=== PATIENT | male | born 1960 | race Caucasian/White ===

== ENCOUNTER 2018-03-04 10:19 | Observation (INO) ==
[2018-03-04] MEDS ORDERED: Sodium Chlor 0.9% Inj 500 ML IV.SIG ONE (10:57)
--- NOTE | 2018-03-04 11:05 | ED ---
HPI General Chief Complaint: Chest Pain Stated Complaint: Chest Pain Complaint Time Seen by Provider: 03/04/18 10:34 Source: patient Mode of arrival: ambulatory Limitations: no limitations History of Present Illness HPI narrative: and is followed by his finished goods inspector, Dr. Jj.The patient is a 57-year-old male who presents to the emergency department for chest pain. The patient developed chest pain approximately 30 hours prior to arrival while playing a video game. The chest pain is substernal, nonradiating, described as "squeezing my chest "and constant. The patient denies any exertional component to his pain. He also notes intermittent sharp pains that are worse with inspiration, near the sternum, and only lasts 10 seconds. He denies any new cough, shortness of breath, nausea, vomiting, or diaphoresis. The patient states he has had a stressful month, had surgery performed several months ago by Dr. Patel for an inguinal hernia and then after his surgery his had to have emergent surgery. He denies any significant lower leg swelling and denies any history of DVT or PE. The patient does have a history of coronary artery disease with previous stent placement by Dr. Bledsoe at [facility] in [facility], and is followed by his finished goods inspector Dr. Jj. The patient did take a baby aspirin this morning, he has not tried taking his nitroglycerin sublingual at home. MD complaint: Reports chest pain STEMI Alert: No Onset (ago): day(s) Duration: constant Onset: during rest Pain location: Reports substernal Severity: moderate Severity scale (1-10): 5 Quality: Reports tightness Pain radiation: Reports none Relieving factors: nothing Exacerbating factors: inspiration Treatments prior to arrival chest pain: Reports aspirin Related Data Home Medications Medication Instructions Recorded Confirmed aspirin [Aspirin Low Dose] 81 mg PO DAILY 01/23/18 03/04/18 atorvastatin 20 mg PO HS 01/24/18 03/04/18 hydrocodone-acetaminophen 1 tab PO Q6H PRN 01/24/18 03/04/18 isosorbide mononitrate 60 mg PO DAILY 01/24/18 03/04/18 ranitidine HCl 150 mg PO BID 01/24/18 03/04/18 Allergies Allergy/AdvReac Type Severity Reaction Status Date / Time bee venom protein (honey bee) Allergy Swelling Verified 03/04/18 10:28 [Bee sting] Review of Systems ROS: all other systems reviewed are negative [facility] Social History Social History Substance History: No History of Abuse Second Hand Smoke Exposure: Yes Smoking Status: Never smoker How Often Do You Have a Drink Containing Alcohol: Monthly or less Recent Travel in [facility] within the Last 8 Weeks: No Recent Out of Country Travel within the Last 8 Weeks: No Immunization History Tetanus Immunization: Unsure Exam Narrative Exam Narrative: GENERAL: Awake, alert, very pleasant 57-year-old male who appears his stated age and is in no acute respiratory distress. SKIN: Focused skin assessment warm/dry. HEAD: Atraumatic. Normocephalic. EYES: No injection or drainage. ENT: No nasal bleeding or discharge. Mucous membranes pink and moist. NECK: Trachea midline. No JVD. CARDIOVASCULAR: Regular rate and rhythm. No murmur appreciated. RESPIRATORY: No accessory muscle use. Clear to auscultation. Breath sounds equal bilaterally. GASTROINTESTINAL: Abdomen soft, non-tender, nondistended. Small umbilical hernia. MUSCULOSKELETAL: No obvious deformities. No clubbing. No cyanosis. No edema. NEUROLOGICAL: Awake and alert. No obvious cranial nerve deficits. Motor grossly within normal limits. Normal speech. PSYCHIATRIC: Appropriate mood and affect; insight and judgment normal. Course Initial Documented Vital Signs Temperature 98.0 F 03/04/18 10:24 Pulse Rate 70 03/04/18 10:24 Respiratory Rate 14 03/04/18 10:24 Blood Pressure 102/59 L 03/04/18 10:24 Pulse Oximetry 96 03/04/18 10:24 Last Documented Vital Signs Temperature 98.0 F 03/04/18 10:24 Pulse Rate 56 L 03/04/18 12:41 Respiratory Rate 18 03/04/18 12:41 Blood Pressure 100/56 L 03/04/18 12:41 Pulse Oximetry 97 03/04/18 12:41 Medical Decision Making [facility] Narrative Medical decision making narrative: IV was established, labs are drawn and sent, and the patient was placed on cardiac telemetry monitoring and continuous pulse oximetry monitoring. EKG was ordered and interpreted. Chest x-ray was obtained. The patient was administered aspirin and Nitropaste. The patient's initial troponin and CPK were unremarkable. Chest x-ray was unremarkable. However, lipase level was greater than 1200. The patient had 2 beers on Saturday while pressure washing the driveway, however, he does not drink alcohol on a regular basis. The patient denies any previous history of pancreatitis or chronic alcohol abuse, therefore, ultrasound of the gallbladder was obtained to evaluate for possible biliary stone. Ultrasound is negative. Review the patient's medications revealed no obvious medications known to cause pancreatitis. The patient may have hypertriglyceridemia versus atypical viral syndrome with acute pancreatitis, however, level is greater than 1000, therefore , patient will be admitted for further workup. The patient has [facility], therefore, the on-call [facility] physician was paged for admission. I discussed the patient with Dr. Gan who agrees with admission. Medical Screen Exam Complete: Yes Emergency Medical Condition: Yes Differential Diagnosis Differential Diagnosis: Differential diagnosis includes STEMI, acute coronary syndrome, GERD, esophageal spasm, costochondritis, pleurisy, pulmonary embolism , pancreatitis, gastritis, peptic ulcer disease. Lab Data Lab results reviewed: Yes I reviewed the patient's lab results. Lab results narrative: Lipase was 1231 Result diagrams: 03/04/18 10:50 03/04/18 10:50 Lab Results 03/04/18 03/04/18 03/04/18 Range/Units 10:50 10:50 10:50 WBC 10.7 (4.0-11.0) th/mm3 RBC 4.81 (4.50-5.90) mil/mm3 Hgb 15.0 (13.0-17.0) gm/dL Hct 44.2 (39.0-51.0) % MCV 92.0 (80.0-100.0) fL MCH 31.3 (27.0-34.0) pg MCHC 34.0 (32.0-36.0) % RDW 14.0 (11.6-17.2) % Plt Count 337 (150-450) th/mm3 MPV 8.1 (7.0-11.0) fL Prelim Diff (Auto) Slide review pending Neut % (Auto) 70.0 (16.0-70.0) % Lymph % (Auto) 21.2 (9.0-44.0) % Greer % (Auto) 7.8 (0.0-8.0) % Eos % (Auto) 0.7 (0.0-4.0) % Baso % (Auto) 0.3 (0.0-2.0) % Neut # (Auto) 7.5 (1.8-7.7) th/mm3 Lymph # (Auto) 2.3 (1.0-4.8) th/mm3 Greer # (Auto) 0.8 (0.0-0.9) th/mm3 Eos # (Auto) 0.1 (0.0-0.4) th/mm3 Baso # (Auto) 0.0 (0.0-0.2) th/mm3 WBC Differential . Diff Scan Auto diff confirmed Differential Comment . Platelet Estimate Normal (Normal) Platelet Morphology Normal (Normal) PT 10.4 (9.8-11.6) sec INR 1.0 Ratio APTT 23.5 (23.4-31.7) sec Sodium 141 (136-145) meq/L Potassium 4.3 (3.5-5.1) meq/L Chloride 109 H (98-107) meq/L Carbon Dioxide 22.7 (21.0-32.0) meq/L Anion Gap 9 (5-15) meq/L BUN 13 (7-18) mg/dL Creatinine 1.01 (0.60-1.30) mg/dL Estimated GFR 76 L (>89) mL/min Random Glucose 109 H (74-106) mg/dL Calcium 8.6 (8.5-10.1) mg/dL Magnesium 2.1 (1.5-2.5) mg/dL Total Bilirubin 0.6 (0.2-1.0) mg/dL AST 47 H (15-37) U/L ALT 44 (12-78) U/L Alkaline Phosphatase 95 (45-117) U/L Total Creatine Kinase 144 (39-308) U/L CK-MB (CK-2) 1.3 (0.5-3.6) ng/mL Troponin I Less than 0.02 L (0.02-0.05) ng/mL B-Natriuretic Peptide (0-100) pg/mL Total Protein 7.8 (6.4-8.2) g/dL Albumin 3.9 (3.4-5.0) g/dL Lipase 1231 H (73-393) U/L 03/04/18 Range/Units 10:50 WBC (4.0-11.0) th/mm3 RBC (4.50-5.90) mil/mm3 Hgb (13.0-17.0) gm/dL Hct (39.0-51.0) % MCV (80.0-100.0) fL MCH (27.0-34.0) pg MCHC (32.0-36.0) % RDW (11.6-17.2) % Plt Count (150-450) th/mm3 MPV (7.0-11.0) fL Prelim Diff (Auto) Neut % (Auto) (16.0-70.0) % Lymph % (Auto) (9.0-44.0) % Greer % (Auto) (0.0-8.0) % Eos % (Auto) (0.0-4.0) % Baso % (Auto) (0.0-2.0) % Neut # (Auto) (1.8-7.7) th/mm3 Lymph # (Auto) (1.0-4.8) th/mm3 Greer # (Auto) (0.0-0.9) th/mm3 Eos # (Auto) (0.0-0.4) th/mm3 Baso # (Auto) (0.0-0.2) th/mm3 WBC Differential Diff Scan Differential Comment Platelet Estimate (Normal) Platelet Morphology (Normal) PT (9.8-11.6) sec INR Ratio APTT (23.4-31.7) sec Sodium (136-145) meq/L Potassium (3.5-5.1) meq/L Chloride (98-107) meq/L Carbon Dioxide (21.0-32.0) meq/L Anion Gap (5-15) meq/L BUN (7-18) mg/dL Creatinine (0.60-1.30) mg/dL Estimated GFR (>89) mL/min Random Glucose (74-106) mg/dL Calcium (8.5-10.1) mg/dL Magnesium (1.5-2.5) mg/dL Total Bilirubin (0.2-1.0) mg/dL AST (15-37) U/L ALT (12-78) U/L Alkaline Phosphatase (45-117) U/L Total Creatine Kinase (39-308) U/L CK-MB (CK-2) (0.5-3.6) ng/mL Troponin I (0.02-0.05) ng/mL B-Natriuretic Peptide 30 (0-100) pg/mL Total Protein (6.4-8.2) g/dL Albumin (3.4-5.0) g/dL Lipase (73-393) U/L Imaging Data Radiologist's impression: Chest X-Ray 03/04/18 10:57 CONCLUSION: No acute cardiopulmonary disease. Gallbladder Ultrasound 03/04/18 11:45 CONCLUSION: 1. Unremarkable study. ECG Data EKG Prior to Arrival: No Attestation: I personally reviewed and interpreted this ECG as follows: Interpretation: EKG reveals normal sinus rhythm with a rate of Q wave in lead II , III, and aVF with inverted T waves in lead III and aVF. No significant changes when compared to EKG from December 17, 2017. Discharge Plan Discharge Disposition Patient Disposition: 30 Still Patient Discharge Condition Condition: Stable Discharge Details Diagnosis: Acute pancreatitis Physicians Team ED Provider: Coy Romero Primary Care Provider: Ben Carreno Attending Provider: Adrian Gan Status ED Status: Admitted Patient
--- NOTE | 2018-03-04 11:12 | XR ---
EXAM DATE: 03/04/2018 11:06 AM EST AGE/SEX: 57 years / Male INDICATIONS: Chest pain. CLINICAL DATA: This is the patient's initial encounter. Patient reports that signs and symptoms have been present for 1 day and indicates a pain score of 5/10. MEDICAL/SURGICAL HISTORY: None. . Heart stent. COMPARISON: No prior exams available for comparison. FINDINGS: The lungs are clear without infiltrate, nodule, or mass. There is no appreciable pleural effusion for technique. Heart and mediastinum are unremarkable. CONCLUSION: No acute cardiopulmonary disease. Electronically signed by: Nohemy Moya MD 03/04/2018 11:11 AM EST
[2018-03-04 11:29] LABS: Baso % (Auto) 0.3 % (0.0-2.0); Eos # (Auto) 0.1 th/mm3 (0.0-0.4); Eos % (Auto) 0.7 % (0.0-4.0); Hematocrit 44.2 % (39.0-51.0); Lymph # (Auto) 2.3 th/mm3 (1.0-4.8); Lymph % (Auto) 21.2 % (9.0-44.0); Mean Corpuscular Hemoglobin 31.3 pg (27.0-34.0); Mean Platelet Volume 8.1 fL (7.0-11.0); Mono # (Auto) 0.8 th/mm3 (0.0-0.9); Mono % (Auto) 7.8 % (0.0-8.0); Neut # (Auto) 7.5 th/mm3 (1.8-7.7); Platelet Count 337 th/mm3 (150-450); Red Blood Count 4.81 mil/mm3 (4.50-5.90); White Blood Count 10.7 th/mm3 (4.0-11.0)
[2018-03-04 11:32] LABS: Activated Partial Thrombo Time 23.5 sec (23.4-31.7); Prothrombin Time 10.4 sec (9.8-11.6)
[2018-03-04 11:38] LABS: Alanine Aminotransferase 44 U/L (12-78); Albumin 3.9 g/dL (3.4-5.0); Anion Gap 9 meq/L (5-15); Aspartate Aminotransferase 47 U/L (15-37); Blood Urea Nitrogen 13 mg/dL (7-18); Calcium 8.6 mg/dL (8.5-10.1); Carbon Dioxide 22.7 meq/L (21.0-32.0); Chloride 109 meq/L (98-107); Glomerular Filtration Rate 76 mL/min (>89); Glucose,Random 109 mg/dL (74-106); Lipase 1231 U/L (73-393); Magnesium 2.1 mg/dL (1.5-2.5); Potassium 4.3 meq/L (3.5-5.1); Sodium 141 meq/L (136-145)
--- NOTE | 2018-03-04 11:38 | ECG ---
Date Performed: 03/04/2018 Time Performed: 10:35:34 PTAGE: 57 years EKG: Sinus rhythm INFERIOR MYOCARDIAL INFARCTION ABNORMAL ECG NO PREVIOUS TRACING DOCTOR: David Honeycutt Interpretating Date/Time 03/04/2018 11:37:11
[2018-03-04 11:41] LABS: Alkaline Phosphatase 95 U/L (45-117); Creatine Kinase 144 U/L (39-308); Total Protein 7.8 g/dL (6.4-8.2)
[2018-03-04 11:54] LABS: Creatine Kinase MB 1.3 ng/mL (0.5-3.6)
[2018-03-04 12:00] LABS: Platelet Estimate Normal (Normal); Platelet Morphology Normal (Normal)
--- NOTE | 2018-03-04 12:15 | US ---
EXAM DATE: 03/04/2018 12:06 PM EST AGE/SEX: 57 years / Male INDICATIONS: Abdominal pain. Evaluate common bile duct. CLINICAL DATA: This is the patient's initial encounter. Patient reports that signs and symptoms have been present for 3 days and indicates a pain score of 3/10. MEDICAL/SURGICAL HISTORY: . Heart disease. . Cardiac stent. Inguinal hernia repair. COMPARISON: No prior exams available for comparison. MEASUREMENTS: Liver:__ 16.5 cm. Common Bile Duct:__ 5mm. FINDINGS: Liver: Normal echotexture without focal lesion or ductal dilatation. Portal Vein: Hepatopedal flow seen in portal vein. Common Duct: No intraluminal mass or stone visualized. Gallbladder: Demonstrates no wall thickening or pericholecystic fluid. No stones visualized. Pancreas: Not well visualized. Right Kidney: Normal echotexture and cortical thickness. No mass or hydronephrosis. Other: None. CONCLUSION: 1. Unremarkable study. Electronically signed by: Nohemy Moya MD 03/04/2018 12:13 PM EST
[2018-03-04] MEDS ORDERED: Acetaminophen 325 MG Tablet PO PRN (12:59)
[2018-03-04] MEDS ORDERED: Temazepam 15 MG Capsule PO PRN (12:59)
[2018-03-04] MEDS ORDERED: Haloperidol Inj 5 MG/ML Ampul IV.PUSH PRN (13:11)
[2018-03-04] MEDS ORDERED: LORazepam 1 MG Tablet PO PRN (13:11)
[2018-03-04] MEDS ORDERED: HYDROmorphone PF Inj 0.5 MG/0.5 ML Syringe IV.PUSH PRN (13:19)
[2018-03-04] MEDS: KCL 20 mEq/NACL 0.45% Inj 1,000 ML IV.CONT SCH (14:09)
--- NOTE | 2018-03-04 16:37 | P.HPIM ---
History of Present Illness Primary Care Physician: Ben Carreno History of Present Illness: Pt is a 57 y/o WM with CAD s/p PTCA, GERD, migraine headaches, hyperlipidemia, and chronic back pain. He presented to the ED at [facility] with complaints of chest pain. The patient developed chest pain approximately 30 hours prior to arrival in the ED while playing a video game. Its described as a constant lower sternal, nonradiating, described as "squeezing my chest." The patient denies any exertional component to his pain. He denies any new cough, shortness of breath, diaphoresis, fevers/chills, nausea, vomiting, or diaphoresis. Denies any The patient recently had inguinal hernia [place] [address] Patel. He denies any significant lower leg swelling and denies any history of DVT or PE. His labs in the ED revealed Lipase of 1231, AST 47, ALT 44, TBili 0.6 and AlkPhos 95. His troponin I was less than 0.02. Gallbladder US was negative. He reports very occasional alcohol use. Last beer was 2 days ago and prior to that it was a few weeks ago. He denies any new medications. No recent travel. Past Medical Hx: CAD s/p PTCA GERD Hyperlipidemia Migraine Rosado Chronic low back pain Hx of nicotine dependence Past Surgical Hx: Inguinal hernia repair BCC removed from lip PTCA with stent placement in 2014 Family Hx: Noncontributory Social Hx: Hx of tobacco use, smoked 1/2-1ppd x 30+years, none for the last 5 years Occasional alcohol use Rare marijuana use Diagnosis (1) Atypical chest pain: (2) Elevated lipase: (3) Hyperlipidemia: (4) GERD (gastroesophageal reflux disease): Inpatient Certification Inpatient Certification: I certify that the inpatient services were ordered in accordance with Medicare regulations governing the order. This includes certification that hospital inpatient services are reasonable and necessary and in the case of services not specified as inpatient-only under 42 CFR 419.22(n), that they are appropriately provided as inpatient services in accordance to with the 2-midnight benchmark under 43 CFR 412.3(e) Estimated Total Length of Stay (Days): 3 Plans for Post Hospital Care: Not yet determined Medications and Allergies Allergies Allergy/AdvReac Type Severity Reaction Status Date / Time bee venom protein (honey bee) Allergy Swelling Verified 03/04/18 10:28 [Bee sting] Home Medications Medication Instructions Recorded Confirmed Type aspirin [Aspirin Low Dose] 81 mg PO DAILY 01/23/18 03/04/18 History atorvastatin 20 mg PO HS 01/24/18 03/04/18 History hydrocodone-acetaminophen 1 tab PO Q6H PRN 01/24/18 03/04/18 History isosorbide mononitrate 60 mg PO DAILY 01/24/18 03/04/18 History ranitidine HCl 150 mg PO BID 01/24/18 03/04/18 History Active Medications: Active Medications Acetaminophen (Tylenol) 650 mg PO Q4H PRN PRN Reason: Temp > 100.4 Hydrocodone Bitart/Acetaminophen (Isola 5/325) 1 tab PO Q4H PRN PRN Reason: pain 1 - 5 Al Hydroxide/Mg Hydroxide (Milk Of Magnesia Liq) 30 ml PO Q12H PRN PRN Reason: Mild Constipation Aspirin (Ecotrin) 81 mg PO DAILY [facility] Last Admin: 03/04/18 14:10 Dose: 81 mg Atorvastatin Calcium (Lipitor) 20 mg PO HS [facility] Flumazenil (Romazecon Inj) 0.2 mg IV.PUSH Q1M PRN PRN Reason: OVERSEDATION Haloperidol Lactate (Haldol Inj) 1 mg IV.PUSH Q15M PRN PRN Reason: for severe agitation Hydromorphone HCl (Dilaudid Pf Inj) 0.5 mg IV.PUSH Q4H PRN PRN Reason: pain 6 -10, Potassium Chloride/Sodium Chloride (Potassium Chlor 20 Meq/Nacl 0.45% Inj) 1, 000 mls @ 84 mls/hr IV.CONT .[id number] [facility] Last Admin: 03/04/18 14:09 Dose: 84 mls/hr Isosorbide Mononitrate (Imdur) 60 mg PO DAILY [facility] Lorazepam (Ativan Inj) 1 mg IV.PUSH Q4H PRN PRN Reason: for CIWA 8-10 Lorazepam (Ativan Inj) 2 mg IV.PUSH Q15M PRN PRN Reason: for CIWA > 20 Lorazepam (Ativan Inj) 2 mg IV.PUSH Q2H PRN PRN Reason: for CIWA 11-14 Lorazepam (Ativan) 1 mg PO Q4H PRN PRN Reason: for CIWA 8-10 Lorazepam (Ativan) 2 mg PO Q2H PRN PRN Reason: for CIWA 11-14 Lorazepam (Ativan Inj) 2 mg IV.PUSH Q1H PRN PRN Reason: for CIWA 15-20 Non-Formulary Medication (Ranitidine Hcl [Ranitidine Hcl]) 150 mg PO BID DEVAN Ondansetron HCl (Zofran Inj) 4 mg IV.PUSH Q6H PRN PRN Reason: NAUSEA OR VOMITING Senna/Docusate Sodium (Lexi-Colace) 1 tab PO BID DEVAN Sodium Chloride (Ns Flush) 2 ml IV.FLUSH UNSCH PRN PRN Reason: FLUSH AFTER USING IV ACCESS Temazepam (Restoril) 15 mg PO HS PRN PRN Reason: INSOMNIA Physical Exam Vital signs: Last Vital Signs Temp 98.0 F 03/04/18 10:24 Pulse 58 L 03/04/18 16:06 Resp 18 03/04/18 16:06 BP 102/57 L 03/04/18 16:06 Pulse Ox 98 03/04/18 16:06 Narrative: GENERAL: NAD, AAOx3 SKIN: Warm and dry. HEAD: Atraumatic. Normocephalic. EYES: Pupils equal and round. No scleral icterus. No injection or drainage. ENT: No nasal bleeding or discharge. Mucous membranes pink and moist. NECK: Trachea midline. No JVD. CARDIOVASCULAR: Regular rate and rhythm. RESPIRATORY: No accessory muscle use. Clear to auscultation. Breath sounds equal bilaterally. GASTROINTESTINAL: Abdomen soft, non-tender, nondistended. Hepatic and splenic margins not palpable. MUSCULOSKELETAL: Extremities without clubbing, cyanosis, or edema. No obvious deformities. NEUROLOGICAL: Awake and alert. No obvious cranial nerve deficits. Motor grossly within normal limits. Five out of 5 muscle strength in the arms and legs. Normal speech. PSYCHIATRIC: Appropriate mood and affect; insight and judgment normal. Results Labs CBC & Chem 7: 03/05/18 04:04 03/05/18 04:04 Imaging Chest X-Ray 03/04/18 10:57 CONCLUSION: No acute cardiopulmonary disease. Gallbladder Ultrasound 03/04/18 11:45 CONCLUSION: 1. Unremarkable study. Caprini VTE Risk Assessment Caprini VTE Risk Assessment: No/Low Risk (score <= 1) Caprini Risk Assessment Model: Point Value = 1 Point Value = 2 Point Value = 3 Point Value = 5 Age 41-60 Minor surgery BMI > 25 kg/m2 Swollen legs Varicose veins or History of unexplained or recurrent spontaneous Oral contraceptives or hormone replacement Sepsis (< 1 month) Serious lung disease, including pneumonia (< 1 month) Abnormal pulmonary function Acute myocardial infarction Congestive heart failure (< 1 month) History of inflammatory bowel disease Medical patient at bed rest Age 61-74 Arthroscopic surgery Major open surgery (> 45 min) Laparoscopic surgery (> 45 min) Malignancy Confined to bed (> 72 hours) Immobilizing plaster cast Central venous access Age >= 75 History of VTE Family history of VTE Factor V Leiden Prothrombin [id number] Lupus anticoagulant Anticardiolipin antibodies Elevated serum homocysteine Heparin-induced thrombocytopenia Other congenital or acquired thrombophilia Stroke (< 1 month) Elective arthroplasty Hip, pelvis, or leg fracture Acute spinal cord injury (< 1 month) Prophylaxis Regimen: Total Risk Factor Score Risk Level Prophylaxis Regimen 0-1 Low Early ambulation 2 Moderate Order ONE of the following: *Sequential Compression Device (SCD) *Heparin 5000 units SQ BID 3-4 Higher Order ONE of the following medications: *Heparin 5000 units SQ TID *Enoxaparin/Lovenox 40 mg SQ daily (WT < 150 kg, CrCl > 30 mL/min) *Enoxaparin/Lovenox 30 mg SQ daily (WT < 150 kg, CrCl > 10-29 mL/min) *Enoxaparin/Lovenox 30 mg SQ BID (WT < 150 kg, CrCl > 30 mL/min) AND/OR *Sequential Compression Device (SCD) 5 or more Highest Order ONE of the following medications: *Heparin 5000 units SQ TID (Preferred with Epidurals) *Enoxaparin/Lovenox 40 mg SQ daily (WT < 150 kg, CrCl > 30 mL/min) *Enoxaparin/Lovenox 30 mg SQ daily (WT < 150 kg, CrCl > 10-29 mL/min) *Enoxaparin/Lovenox 30 mg SQ BID (WT < 150 kg, CrCl > 30 mL/min) AND *Sequential Compression Device (SCD) Assessment and Plan Assessment (1) Atypical chest pain: Code(s): R07.89 - Other chest pain Status: Acute (2) Elevated lipase: Code(s): R74.8 - Abnormal levels of other serum enzymes Status: Acute (3) Hyperlipidemia: Code(s): E78.5 - Hyperlipidemia, unspecified Status: Chronic (4) GERD (gastroesophageal reflux disease): Code(s): K21.9 - Gastro-esophageal reflux disease without esophagitis Status: Chronic Plan Atypical Chest pain Elevated Lipase, ?acute pancreatitis - 57 y/o WM with CAD s/p PTCA, GERD, migraine headaches, hyperlipidemia, and chronic back pain. He presented to the ED at [facility] with complaints of chest pain. The patient developed chest pain approximately 30 hours prior to arrival in the ED while playing a video game. The patient denies any exertional component to his pain. He denies any new cough, shortness of breath, diaphoresis, fevers/ chills, nausea, vomiting, or diaphoresis. The patient recently had inguinal hernia repair in 12/[address] Patel. He reports very occasional alcohol use. Last beer was 2 days ago and prior to that it was a few weeks ago. He denies any new medications. No recent travel. - His labs in the ED revealed Lipase of 1231, AST 47, ALT 44, TBili 0.6 and AlkPhos 95. - His troponin I was less than 0.02. - Gallbladder US was negative. - Check Serial CE - Check Lipase and FLP in AM - IVF - Pain control as BP allows - Pt insistent on at least a liquid diet this evening. Dicussed with him that with repeat labs in AM should he have any elevation in his Lipase or any increased pain that he is to be strict NPO - Supportive care - Further recommendations as the case develops Hx of CAD/CA s/p PTCA with stent in 2014 - Pt is on Imdur 60mg po daily but BP is quite low - Decrease Imdur down to 30mg daily but will need to watch the BP closely Hyperlipidemia - Cont. statin GERD - PPI Attending Attestation The exam, history, and the medical decision-making described in the above note were completed with the assistance of the mid-level provider. I reviewed and agree with the findings presented. I attest that I had a [id number] encounter with the patient on the same day, and personally performed and documented my assessment and findings in the medical record. Patient examined. Assessment and plan formulated with Humaira Anne PA-C. I agree with the above.
[2018-03-04 18:49] LABS: Amphetamine Screen,Urine Neg (Neg); Barbiturate Screen,Urine Neg (Neg); Cannabinoid Screen,Urine Pos (Neg); Cocaine Screen,Urine Neg (Neg)
[2018-03-04 18:53] LABS: Opiate Screen,Urine Neg (Neg)
[2018-03-04] MEDS: Senna/Docusate Sodium 8.6/50 MG Tablet PO SCH (20:56)
[2018-03-04 22:04] LABS: Creatine Kinase 93 U/L (39-308)
[2018-03-05] MEDS: KCL 20 mEq/NACL 0.45% Inj 1,000 ML IV.CONT SCH ×2 (01:27→13:24)
[2018-03-05 05:55] LABS: Baso % (Auto) 0.5 % (0.0-2.0); Eos # (Auto) 0.1 th/mm3 (0.0-0.4); Eos % (Auto) 1.7 % (0.0-4.0); Hematocrit 41.1 % (39.0-51.0); Hemoglobin 13.8 gm/dL (13.0-17.0); Lymph # (Auto) 2.4 th/mm3 (1.0-4.8); Lymph % (Auto) 32.4 % (9.0-44.0); Mean Corpuscular HGB Conc 33.5 % (32.0-36.0); Mean Corpuscular Hemoglobin 30.4 pg (27.0-34.0); Mean Corpuscular Volume 90.8 fL (80.0-100.0); Mean Platelet Volume 7.7 fL (7.0-11.0); Mono # (Auto) 0.6 th/mm3 (0.0-0.9); Mono % (Auto) 8.1 % (0.0-8.0); Neut # (Auto) 4.3 th/mm3 (1.8-7.7); Neut % (Auto) 57.3 % (16.0-70.0); Platelet Count 271 th/mm3 (150-450); Red Blood Count 4.52 mil/mm3 (4.50-5.90); Red Cell Distribution Width 13.3 % (11.6-17.2); White Blood Count 7.5 th/mm3 (4.0-11.0)
[2018-03-05 06:25] LABS: Alanine Aminotransferase 39 U/L (12-78); Albumin 3.5 g/dL (3.4-5.0); Anion Gap 7 meq/L (5-15); Aspartate Aminotransferase 39 U/L (15-37); Blood Urea Nitrogen 12 mg/dL (7-18); Calcium 8.3 mg/dL (8.5-10.1); Carbon Dioxide 25.9 meq/L (21.0-32.0); Chloride 110 meq/L (98-107); Cholesterol 102 mg/dL (120-200); Glomerular Filtration Rate Greater Than 89 mL/min (>89); Glucose,Random 76 mg/dL (74-106); Lipase 1278 U/L (73-393); Potassium 3.8 meq/L (3.5-5.1); Sodium 143 meq/L (136-145)
[2018-03-05] MEDS: Isosorbide Mononitrate 30 MG ER 24HR Tablet (Imdur) PO SCH (06:29)
[2018-03-05 06:34] LABS: Alkaline Phosphatase 87 U/L (45-117); Chol/HDL Ratio 3.05 Ratio; HDL Cholesterol 33.4 mg/dL (40.0-60.0); LDL Cholesterol,Calculated 43 mg/dL (0-99); Total Protein 7.2 g/dL (6.4-8.2); Triglycerides 127 mg/dL (42-150)
[2018-03-05 06:37] LABS: Creatine Kinase 95 U/L (39-308)
[2018-03-05] MEDS: Senna/Docusate Sodium 8.6/50 MG Tablet PO SCH ×2 (08:46→20:43)
[2018-03-05] MEDS: Famotidine 20 MG Tablet PO SCH (08:46)
[2018-03-05] MEDS ORDERED: Isosorbide Mononitrate 60 MG ER 24HR Tablet (Imdur) PO SCH (09:00)
--- NOTE | 2018-03-05 14:32 | P.PNIM ---
Subjective Interval history: Pt feels better from admission. Pt is tolerating clears. Pt c/o mild med-epigastric discomfort. Pt denies n/v/d. Pt denies chest pain, palpitations, or SOB. Physical Exam Vital signs: Last Vital Signs Temp 98.3 F 03/05/18 12:00 Pulse 64 03/05/18 12:00 Resp 16 03/05/18 12:00 BP 111/63 03/05/18 12:00 Pulse Ox 97 03/05/18 12:00 Intake & Output 03/03/18 03/04/18 03/05/18 03/06/18 06:59 06:59 06:59 06:59 Intake Total 1963 Balance 1963 Weight 91.3 kg Narrative: GENERAL: This is a well-nourished, well-developed patient, in no apparent distress. CARDIOVASCULAR: Regular rate and rhythm without murmurs, gallops, or rubs. RESPIRATORY: Clear to auscultation. Breath sounds equal bilaterally. No wheezes , rales, or rhonchi. GASTROINTESTINAL: Abdomen soft, non-tender, nondistended. Normal active bowel sounds MUSCULOSKELETAL: Extremities without clubbing, cyanosis, or edema. NEURO: Alert & Oriented x4 to person, place, time, situation. Moves all ext x4 Results Labs CBC & Chem 7: 03/05/18 04:04 03/05/18 04:04 Assessment and Plan (1) Atypical chest pain: Code(s): R07.89 - Other chest pain Status: Acute (2) Elevated lipase: Code(s): R74.8 - Abnormal levels of other serum enzymes Status: Acute (3) Hyperlipidemia: Code(s): E78.5 - Hyperlipidemia, unspecified Status: Chronic (4) GERD (gastroesophageal reflux disease): Code(s): K21.9 - Gastro-esophageal reflux disease without esophagitis Status: Chronic Plan Atypical Chest pain Elevated Lipase, ?acute pancreatitis - 57 y/o WM with CAD s/p PTCA, GERD, migraine headaches, hyperlipidemia, and chronic back pain. [place] [facility] [place]. The patient developed chest pain approximately 30 hours prior to arrival in the ED while playing a video game. The patient denies any exertional component to his pain. He denies any new cough, shortness of breath, diaphoresis, fevers/ chills, nausea, vomiting, or diaphoresis. The patient recently had inguinal hernia repair in 12/[address] Patel. He reports very occasional alcohol use. Last beer was 2 days ago and prior to that it was a few weeks ago. He denies any new medications. No recent travel. - His labs in the ED revealed Lipase of 1231, AST 47, ALT 44, TBili 0.6 and AlkPhos 95. - Repeat Lipase 1278 (03/05), but minimal abdominal discomfort. - Pt refused NPO status upon admission. - advance diet - repeat lipase in AM - Troponin x 3 --> less than 0.02 - obtain repeat EKG - Gallbladder US (03/04/18) negative. - Triglyceride (03/05/18) --> WNL - hypotension resolved - narcotics prn pain - DVT prophylaxis - supportive care Hx of CAD/WV s/p PTCA with stent in 2014 - Pt is on Imdur 60mg po daily but BP is quite low - Decrease Imdur down to 30mg daily but will need to watch the BP closely Hyperlipidemia - Cont. statin GERD - PPI Progress Note: Quality VTE Deep Vein Thrombosis/Pulmonary Embolism Present on Admission: No
[2018-03-06] MEDS: Isosorbide Mononitrate 30 MG ER 24HR Tablet (Imdur) PO SCH (06:32)
[2018-03-06] MEDS: Famotidine 20 MG Tablet PO SCH (08:37)
[2018-03-06] MEDS: Senna/Docusate Sodium 8.6/50 MG Tablet PO SCH (08:37)
--- NOTE | 2018-03-06 10:25 | ECG ---
Date Performed: 03/05/2018 Time Performed: 17:58:09 PTAGE: 57 years EKG: Sinus rhythm PROBABLE INFERIOR MYOCARDIAL INFARCTION , OF INDETERMINATE AGE WITH POSTERIOR EXTENSION Since the pr evious tracing, no significant change noted ABNORMAL ECG PREVIOUS TRACING : 03/04/2018 10.35 DOCTOR: Kapil Hutchinson Interpretating Date/Time 03/06/2018 10:24:42
--- NOTE | 2018-03-06 10:46 | P.DS ---
DS: Providers Date of admission: 03/04/18 13:02 Primary care physician: Ben Carreno DS: Diagnosis Discharge Diagnosis (1) Atypical chest pain: Status: Acute (2) Elevated lipase: Status: Acute (3) Hyperlipidemia: Status: Chronic (4) GERD (gastroesophageal reflux disease): Status: Chronic DS: Summary Atypical Chest pain Elevated Lipase, ?acute pancreatitis - 57 y/o WM with CAD s/p PTCA, GERD, migraine headaches, hyperlipidemia, and chronic back pain. He presented to the ED at [facility] [place] with complaints of chest pain. The patient developed chest pain approximately 30 hours prior to arrival in the ED while playing a video game. The patient denies any exertional component to his pain. He denies any new cough, shortness of breath, diaphoresis, fevers/ chills, nausea, vomiting, or diaphoresis. The patient recently had inguinal hernia repair in 12/[address] Patel. He reports very occasional alcohol use. Last beer was 2 days ago and prior to that it was a few weeks ago. He denies any new medications. No recent travel. - His labs in the ED revealed Lipase of 1231, AST 47, ALT 44, TBili 0.6 and AlkPhos 95. - Repeat Lipase 1278 (03/05), 980 (03/06) but minimal abdominal discomfort. - Pt refused NPO status upon admission on day of admission - Pts diet has been advanced to regular - Pt is able to tolerate diet without n/v/d - - repeat lipase & BMP outpt on Saturday, March 10 with results to PCP, Dr. Land - Troponin x 3 --> less than 0.02 - serial EKGs unchanged from prior EKG September 2017 - Gallbladder US (03/04/18) negative. - Triglyceride (03/05/18) --> WNL - hypotension resolved with decrease of imdur. PCP could try to increase this back to 60mg in the outpt setting. - f/u with PCP, Dr. Land in 1 week - f/u with Gastroetnerology, Dr. Pollard in 2 weeks. - see discharge orders. Hx of CAD/OR s/p PTCA with stent in 2014 - Pt is on Imdur 60mg po daily but BP is quite low - Decrease Imdur down to 30mg daily but will need to watch the BP closely - BP readings normalized with dose decrease. See above Hyperlipidemia - Cont. statin GERD - PPI Time Spent with Patient Total time spent providing and/or coordinating discharge services: Quality: VTE Deep Vein Thrombosis/Pulmonary Embolism Present on Admission: No DS: Data Labs on day of discharge: Labs from last 24 hours 03/06/18 05:12 Lipase 980 H Impressions Chest X-Ray 03/04/18 10:57 CONCLUSION: No acute cardiopulmonary disease. Gallbladder Ultrasound 03/04/18 11:45 CONCLUSION: 1. Unremarkable study. Discharge Plan Discharge Disposition Patient Disposition: Discharge Home Discharge Condition Condition: Stable Discharge Details Anticipated Discharge Date: 03/06/18 Discharge Comment: 1) f/u with PCP, Dr. Hans Land, in 1 week 2) f/u with [facility] Gastreoenterology, Dr. Norm Pollard, in 2 weeks Physicians Team ED Provider: Coy Romero Primary Care Provider: Ben Carreno Attending Provider: Adrian Gan Rxs /Orders / Referrals /Forms Prescriptions: New isosorbide mononitrate 30 mg Tablet Extended Release 24 Hr 30 mg PO DAILY@0700 Qty: 30 RF: 0 Continue aspirin [Aspirin Low Dose] 81 mg Tablet,Delayed Release (Dr/Ec) 81 mg PO DAILY RF: 0 atorvastatin 20 mg Tablet 20 mg PO HS RF: 0 hydrocodone-acetaminophen 7.5-325 mg Tablet 1 tab PO Q6H PRN (Reason: Pain) RF: 0 ranitidine HCl 150 mg Tablet 150 mg PO BID RF: 0 Discontinued isosorbide mononitrate 60 mg Tablet Extended Release 24 Hr 60 mg PO DAILY RF: 0 Referrals: Tracey Pollard MD [Physician] - See Instructions (f/u with Gastroenterology, Dr. Tracey Pollard, in 2 weeks) Ben Carreno MD [Primary Care Provider] - See Instructions (f/u with PCP , Dr. Ben Carreno, in 1 week) Discharge Instructions Patient Printed Instructions: Chest Pain (ED), Chest Pain (DC), Pancreatitis ( DC) Discharge Interventions Interventions: Discharge Planning - Case Management Last Done: 03/05/18 15:11 Status ED Status: Left Department
== END 2018-03-06 13:46 | disposition home or self-care (01) ==
LOC: NEPE 10:19 → INTOOBSV 12:59 → NEDA 13:02 → N06 17:21
PROVIDERS: ADMIT Hospitalist; ATTEND Hospitalist
DX: Z87.891 Personal history of nicotine dependence; K21.9 Gastro-esophageal reflux disease without esophagitis; G43.909 Migraine, unspecified, not intractable, without status migrainosus; G89.29 Other chronic pain; R94.31 Abnormal electrocardiogram [ECG] [EKG]; Z95.5 Presence of coronary angioplasty implant and graft; Z79.82 Long term (current) use of aspirin; R74.8 Abnormal levels of other serum enzymes; C44.91 Basal cell carcinoma of skin, unspecified; I25.2 Old myocardial infarction; E78.5 Hyperlipidemia, unspecified; R07.89 Other chest pain; K42.9 Umbilical hernia without obstruction or gangrene; I25.10 Atherosclerotic heart disease of native coronary artery without angina pectoris; M54.5 Low back pain